=== PATIENT | female | born 1950 | race Caucasian/White ===

== ENCOUNTER 2017-12-11 10:28 | Emergency (ER) | payer MEDICARE, OTHER ==
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
[2017-12-11] MEDS: Ketorolac 60 MG/2 ML SDV IM ONE (13:01)
== END 2017-12-11 13:00 ==
LOC: KA.ED 10:28
DX: S32.019A Unspecified fracture of first lumbar vertebra, initial encounter for closed fracture (principal); S22.089A Unspecified fracture of T11-T12 vertebra, initial encounter for closed fracture; S32.059A Unspecified fracture of fifth lumbar vertebra, initial encounter for closed fracture; Z91.030 Bee allergy status; Z91.018 Allergy to other foods; Z79.899 Other long term (current) drug therapy; W19.XXXA Unspecified fall, initial encounter; Y92.129 Unspecified place in nursing home as the place of occurrence of the external cause
CPT/HCPCS: 72100; 72131; 72170; 96372; 99284; J1885